=== PATIENT | female | born 2000 | race African-American/Black ===

== ENCOUNTER 2022-09-18 15:08 | Emergency (ER) | payer OTHER ==
[~2022-09-18] VITALS: Ht 160 cm; Wt 75.7 kg
[2022-09-18 15:10] VITALS: BP_SYST 107
== END 2022-09-18 16:00 | disposition left against medical advice (07) ==
LOC: SED 15:08
DX: S33.5XXA Sprain of ligaments of lumbar spine, initial encounter (principal); M54.50 Low back pain, unspecified; M25.511 Pain in right shoulder; M25.512 Pain in left shoulder; Z79.899 Other long term (current) drug therapy; X58.XXXA Exposure to other specified factors, initial encounter; Y93.89 Activity, other specified; Y92.89 Other specified places as the place of occurrence of the external cause; Y99.8 Other external cause status
CPT/HCPCS: 81025; 99281; 99282